=== PATIENT | female | born 1945 | race Caucasian/White ===

== ENCOUNTER → 2020-10-14 | Outpatient (CLI) | payer MEDICARE ==
[2020-10-14 09:44] LABS: BASOPHIL % 0.4 % (0.0-0.2); CALCIUM 8.8 mg/dL (8.4-10.5); CARBON DIOXIDE 26.4 mmol/L (20.0-32); EOSINOPHIL # 0.2 10^3/uL (0.0-0.2); EOSINOPHIL % 2.1 % (0.0-5.0); LYMPHOCYTES # 1.85 10^3/uL1 (1.0-4.8); LYMPHOCYTES % 25.9 % (24.0-44.0); MEAN CORP HGB 21.1 pg (26-34); MONOCYTES # 0.5 10^3/uL (0.3-0.8); MONOCYTES % 6.3 % (5.0-12.0); NEUTROPHIL # 4.7 10^3/uL (1.8-7.7); NEUTROPHILS % 65.2 % (41.0-85.0); RED CELL DISTRIBUTION WIDTH 19.8 % (11.5-14.5)
== END | disposition home or self-care (01) ==
LOC: NPLAB 08:42
PROVIDERS: ATTEND Family Medicine
DX: I11.0 Hypertensive heart disease with heart failure (principal); I50.22 Chronic systolic (congestive) heart failure; D50.9 Iron deficiency anemia, unspecified
CPT/HCPCS: 80053; 85025

== ENCOUNTER → 2020-10-16 | Outpatient (CLI) | payer MEDICARE ==
[2020-10-17 00:15] LABS: BILIRUBIN,URINE NEGATIVE (NEGATIVE); UA COLOR YELLOW
[2020-10-17 00:16] LABS: UROBILINOGEN,URINE 0.2 E.U./dL (0.2)
== END | disposition home or self-care (01) ==
LOC: NPLAB 16:30
PROVIDERS: ATTEND Family Medicine
DX: R30.9 Painful micturition, unspecified (principal); R82.90 Unspecified abnormal findings in urine
CPT/HCPCS: 81000; 81003; 87086

== ENCOUNTER → 2020-10-21 | Outpatient (CLI) | payer MEDICARE ==
[2020-10-21 14:39] LABS: BASOPHIL % 0.5 % (0.0-0.2); EOSINOPHIL # 0.2 10^3/uL (0.0-0.2); EOSINOPHIL % 1.8 % (0.0-5.0); LYMPHOCYTES # 1.63 10^3/uL1 (1.0-4.8); LYMPHOCYTES % 19.9 % (24.0-44.0); MEAN CORP HGB 21.5 pg (26-34); MONOCYTES # 0.5 10^3/uL (0.3-0.8); MONOCYTES % 5.6 % (5.0-12.0); NEUTROPHIL # 5.9 10^3/uL (1.8-7.7); NEUTROPHILS % 71.8 % (41.0-85.0); PLATELET COUNT 432 10^3/uL (150-400); RED CELL DISTRIBUTION WIDTH 21.5 % (11.5-14.5)
[2020-10-21 14:53] LABS: CALCIUM 9.8 mg/dL (8.4-10.5); CARBON DIOXIDE 26.2 mmol/L (20.0-32)
== END | disposition home or self-care (01) ==
LOC: NPLAB 14:00
PROVIDERS: ATTEND Family Medicine
DX: I11.9 Hypertensive heart disease without heart failure (principal); E78.5 Hyperlipidemia, unspecified; D50.9 Iron deficiency anemia, unspecified
CPT/HCPCS: 80053; 85025

== ENCOUNTER → 2020-10-25 | Outpatient (CLI) | payer MEDICARE ==
[2020-10-25 08:21] LABS: BASOPHIL % 0.5 % (0.0-0.2); EOSINOPHIL # 0.1 10^3/uL (0.0-0.2); EOSINOPHIL % 1.1 % (0.0-5.0); LYMPHOCYTES # 1.56 10^3/uL1 (1.0-4.8); LYMPHOCYTES % 18.8 % (24.0-44.0); MEAN CORP HGB 21.9 pg (26-34); MONOCYTES # 0.7 10^3/uL (0.3-0.8); MONOCYTES % 7.8 % (5.0-12.0); NEUTROPHIL # 5.9 10^3/uL (1.8-7.7); NEUTROPHILS % 71.4 % (41.0-85.0); PLATELET COUNT 397 10^3/uL (150-400); RED CELL DISTRIBUTION WIDTH 21.9 % (11.5-14.5)
[2020-10-25 08:30] LABS: CALCIUM 8.8 mg/dL (8.4-10.5)
== END | disposition home or self-care (01) ==
LOC: NPLAB 07:06
PROVIDERS: ATTEND Family Medicine
DX: I50.22 Chronic systolic (congestive) heart failure (principal); D50.9 Iron deficiency anemia, unspecified; R82.90 Unspecified abnormal findings in urine
CPT/HCPCS: 80053; 81000; 81003; 85025; 87086

== ENCOUNTER → 2020-10-25 | Outpatient (CLI) | payer MEDICARE ==
[2020-10-25 14:11] LABS: BILIRUBIN,URINE NEGATIVE (NEGATIVE); UA COLOR YELLOW; UROBILINOGEN,URINE 0.2 E.U./dL (0.2)
== END | disposition home or self-care (01) ==
LOC: NPLAB 12:42
PROVIDERS: ATTEND Family Medicine
DX: R82.90 Unspecified abnormal findings in urine (principal)
CPT/HCPCS: 81000; 81003; 87086

== ENCOUNTER → 2020-11-01 | Outpatient (CLI) | payer MEDICARE | END | disposition home or self-care (01) | LOC: NPLAB 03:33 | PROVIDERS: ATTEND Family Medicine | DX: I11.0 Hypertensive heart disease with heart failure (principal); I50.22 Chronic systolic (congestive) heart failure; D50.9 Iron deficiency anemia, unspecified; E78.5 Hyperlipidemia, unspecified | CPT/HCPCS: 80061; 84295 ==

== ENCOUNTER → 2020-11-05 | Outpatient (CLI) | payer MEDICARE | END | disposition home or self-care (01) | LOC: NPLAB 09:46 | PROVIDERS: ATTEND Family Medicine | DX: E11.9 Type 2 diabetes mellitus without complications (principal) | CPT/HCPCS: 83036; 84443 ==

== ENCOUNTER → 2020-11-19 | Outpatient (CLI) | payer MEDICARE ==
[2020-11-20 16:43] LABS: BILIRUBIN,URINE NEGATIVE (NEGATIVE); UA COLOR YELLOW; UROBILINOGEN,URINE 0.2 E.U./dL (0.2)
== END | disposition home or self-care (01) ==
LOC: NPLAB 17:00
PROVIDERS: ATTEND Family Medicine
DX: R35.0 Frequency of micturition (principal); R82.998 Other abnormal findings in urine; R30.9 Painful micturition, unspecified
CPT/HCPCS: 81003; 87086

== ENCOUNTER → 2020-11-25 | Outpatient (CLI) | payer MEDICARE ==
[2020-11-25 07:25] LABS: CALCIUM 9.2 mg/dL (8.4-10.5)
== END | disposition home or self-care (01) ==
LOC: NPLAB 05:20
PROVIDERS: ATTEND Family Medicine
DX: I50.22 Chronic systolic (congestive) heart failure (principal); I10 Essential (primary) hypertension
CPT/HCPCS: 80048